=== PATIENT | female | born 1990 | race American Indian/Alaskan Native ===

== ENCOUNTER 2018-12-02 05:48 | Inpatient (IN) | payer MEDICAID, OTHER ==
[2018-12-02] MEDS ORDERED: NARCAN 0.4 MG/1 ML IV PRN (07:06)
[2018-12-02] MEDS ORDERED: XYLOCAINE 2% INFILTRATI ONE (07:06)
[2018-12-02] MEDS ORDERED: STADOL IV PRN (07:06)
[2018-12-02] MEDS ORDERED: SUBLIMAZE IV PRN (07:06)
[2018-12-02] MEDS ORDERED: ZOFRAN IV PRN (07:06)
[2018-12-02] MEDS ORDERED: BRETHINE IVP PRN (07:06)
[2018-12-02] MEDS ORDERED: BRETHINE SUB-Q PRN (07:06)
[2018-12-02] MEDS ORDERED: PITOCin/NS 20 UNIT/1000ML DRIP 20,000 MILLIUNITS/1,000 ML BAG IV ONE (07:11)
[2018-12-02] MEDS ORDERED: LACTATED RINGERS 1,000 ML ONE (07:12)
--- NOTE | 2018-12-02 07:15 | History and Physical Report ---
History of Present Illness Date of examination: 12/02/18 Date of admission: 12/02/18 06:40 Chief complaint: Intense Labor Pains History of present illness: Early entry care, course complicated by a UTI, treated with Macrobid. Past History Past Medical History: other (acne and gastric ulcer) Past Surgical History: hemorrhoidectomy (2008) Family/Genetic History: none Social history: single, smoking (Hx of THC) - Obstetrical History Expected Date of Delivery: 12/15/18 Actual Gestation: 38 Week(s) 1 Day(s) : 4 Para: 2 Hx # Term Pregnancies: 2 Induced : 1 Number of Living Children: 2 #1 Infant Gender: Female year: 2,[birth year] Birthweight: 2.608 kg Method of Delivery: Vaginal Gestational age at delivery: 38 Complications: none #2 Infant Gender: Male year: 2,[birth year] Birthweight: 3.175 kg Method of Delivery: Vaginal Gestational age at delivery: 38 Complications: none Medications and Allergies Allergies Allergy/AdvReac Type Severity Reaction Status Date / Time No Known Allergies Allergy Verified 12/02/18 06:03 Active Meds: Active Medications Butorphanol Tartrate (Stadol) 2 mg IV Q2H PRN PRN Reason: Pain , Severe (7-10) Ephedrine Sulfate (Ephedrine Sulfate) 10 mg IV Q2M PRN PRN Reason: Hypotension Fentanyl (Sublimaze) 100 mcg IV Q2H PRN PRN Reason: Labor Pain Oxytocin/Sodium Chloride (Pitocin/Ns 20 Unit/1000ml Drip) 20 units in 1,000 mls @ 125 mls/hr IV DIRECT INGRID Oxytocin/Sodium Chloride (Pitocin/Ns 30 Unit/500ml) 30 units in 500 mls @ 1 mls/hr IV TITR INGRID; Protocol Oxytocin/Sodium Chloride (Pitocin/Ns 30 Unit/500ml) 30 units in 500 mls @ 2 mls/hr IV TITR INGRID; Protocol Lactated Ringer's (Lactated Ringers) 1,000 mls @ 125 mls/hr IV DIRECT INGRID Lidocaine (Xylocaine 2%) 20 ml INFILTRATI ONCE ONE Stop: 12/02/18 07:07 Mineral Oil (Mineral Oil) 30 ml PO QHS PRN PRN Reason: Constipation Naloxone HCl (Narcan 0.4 Mg/1 Ml) 0.1 mg IV Q2MIN PRN PRN Reason: Res Rate </= 8 or 02 SAT < 92% Ondansetron HCl (Zofran) 4 mg IV Q8H PRN PRN Reason: Nausea And Vomiting Terbutaline Sulfate (Brethine) 0.25 mg SUB-Q ONCE PRN PRN Reason: Hyperstimulation/Hypertonicity Terbutaline Sulfate (Brethine) 0.25 mg IVP ONCE PRN PRN Reason: Hyperstimulation/Hypertonicity Review of Systems All systems: negative - Vital Signs Vital signs: Vital Signs Pulse BP 83 113/75 12/02/18 06:00 12/02/18 06:00 Temp Pulse Resp BP Pulse Ox 83 113/75 12/02/18 06:00 12/02/18 06:00 - Physical Exam Breasts: Positive: normal Cardiovascular: Regular rate Lungs: Positive: Clear to auscultation, Normal air movement Abdomen: Positive: normal appearance, soft, normal bowel sounds Genitourinary (Female): Positive: normal external genitalia, normal perenium Uterus: Positive: enlarged Anus/Rectum: Positive: normal perianal skin Extremities: Positive: normal - Obstetrical FHR: category 1 Uterine Contraction Monitor Mode: External Cervical Dilatation: 8 (AROM of a moderate amount of clear fluid at 0701) Cervical Effacement Percentage: 100 station: 0 Uterine Contraction Pattern: Regular Uterine Tone Measurement Phase: Resting Uterine Contraction Intensity: Moderate Results All other labs normal. Assessment and Plan A: IUP @ 38 05/10 Category I Tracing GBS Negative Active Labor P: Admit to L&D per Routine Orders AROM Anticipate
[2018-12-02 07:33] LABS: Hematocrit 34.7 % (30.3-42.9); Hemoglobin 11.1 gm/dl (10.1-14.3); Mean Corpuscular HGB Conc 32 % (30-34); Mean Corpuscular Volume 84 fl (79-97); Platelet Count 199 K/mm3 (140-440); Red Blood Count 4.11 M/mm3 (3.65-5.03); Red Cell Distribution Width 14.6 % (13.2-15.2)
[2018-12-02] MEDS ORDERED: PITOCin/NS 20 UNIT/1000ML DRIP 20 UNITS/1,000 ML BAG IV SCH (08:00)
[2018-12-02] MEDS ORDERED: LACTATED RINGERS 1,000 ML IV SCH (08:00)
[2018-12-02] MEDS ORDERED: PITOCin/NS 30 UNIT/500ML 30 UNITS/500 ML BAG IV SCH ×2 (08:00)
[2018-12-02] MEDS ORDERED: NARCAN 2 MG/2 ML IV PRN (08:38)
--- NOTE | 2018-12-02 08:38 | Anesthesia Consultation ---
Anesthesia Consult and Med Hx Date of service: 12/02/18 - Airway Anesthetic Teeth Evaluation: Good ROM Head & Neck: Adequate Mental/Hyoid Distance: Adequate Mallampati Class: Class II Intubation Access Assessment: Probably Good - Pulmonary Exam CTA: Yes - Cardiac Exam Cardiac Exam: RRR - Pre-Operative Health Status ASA Pre-Surgery Classification: ASA2 Proposed Anesthetic Plan: Epidural - Pulmonary Hx Asthma: No - Cardiovascular System Hx Hypertension: No - Central Nervous System Hx Seizures: No Hx Psychiatric Problems: No - Endocrine Hx Renal Disease: No Hx Hypothyroidism: No Hx Hyperthyroidism: No - Hematic Hx Anemia: No Hx Sickle Cell Disease: No - Other Systems Hx Alcohol Use: No
[2018-12-02] MEDS ORDERED: fentaNYL-BUPIV 2 MCG/ML-0.125% 200 MCG/100 ML BAG EPIDURAL SCH (09:00)
[2018-12-02] MEDS ORDERED: BENADRYL PO PRN (11:24)
[2018-12-02] MEDS ORDERED: TUCKS PAD TP PRN (11:24)
[2018-12-02] MEDS ORDERED: DULCOLAX PR PRN (11:24)
[2018-12-02] MEDS ORDERED: LANSINOH TP PRN (11:24)
--- NOTE | 2018-12-02 11:32 | Procedure Note ---
OB Delivery Note - Delivery Date of Delivery: 12/02/18 (1105) Surgeon: JANNET WATT Estimated blood loss: 200cc - Vaginal Delivery presentation: vertex Delivery position: OA Intrapartum events: none Delivery induction: none Delivery augmentation: rupture of membranes Delivery monitor: external FHT, external uterine Route of delivery: Delivery placenta: spontaneous Delivery cord: nuchal cord, 3 umbilical vessels Episiotomy: none Delivery laceration: none Anesthesia: epidural Delivery comments: of a live 6'15 female infant over a intact perineum under epidural anesthesia with Apgars of 8 and 9 at 1105 on 12/02/2018. Nuchal cord x 1 manually reduced on the perineum prior to delivery of the anterior shoulder. In jessica directly to maternal abd/chest, skin to skin contact. Spontaneous delivery of placenta complete and intact with Leo side presenting at 1111. Fundus is firm and midline located 4 below the U. Lochia is scant. Delayed cord clamping and cutting; Cord cut by the Father of the Baby. Cord blood collected; Placenta discarded.
[2018-12-02] MEDS ORDERED: SODIUM CHLORIDE FLUSH SYRINGE 10 ML IV SCH (12:00)
[2018-12-02] MEDS ORDERED: IBUPROFEN PO SCH (12:00)
[2018-12-02 14:23] LABS: Hematocrit 33.7 % (30.3-42.9); Hemoglobin 10.7 gm/dl (10.1-14.3)
[2018-12-02] MEDS: NORCO 5/325 PO PRN ×2 (14:30→20:11)
[2018-12-02] MEDS ORDERED: MINERAL OIL PO PRN (22:00)
[2018-12-03] MEDS: NORCO 5/325 PO PRN ×4 (01:49→21:23)
[2018-12-03] MEDS: PRENATAL VITAMIN PO SCH (09:04)
[2018-12-03] MEDS ORDERED: DEPO-PROVERA (CONTRACEPTION) IM ONE (10:31)
--- NOTE | 2018-12-03 10:31 | Progress Note ---
Assessment and Plan A: PPD#1 s/p 12/02 Bottle feeding Pain well controlled Stable P: Routine PP/PO orders Encouraged ambulation in room Anticipate discharge home in 24-48 hrs Subjective - Subjective Date of service: 12/03/18 Principal diagnosis: PPD31 s/p 8 11:27 Interval history: See H&P and delivery note Patient reports: appetite normal, voiding normally, pain well controlled, flatus, ambulating normally, no bowel movement [place]: doing well ( has a 48 hr hold), bottle feeding Objective - Vital Signs Latest vital signs: Vital Signs Temp Pulse Resp BP BP Pulse Ox 12/03/18 09:05 18 12/03/18 08:40 98 F 80 20 105/78 12/03/18 04:23 98.4 F 88 16 99/53 97 12/02/18 23:25 98.7 F 85 18 118/80 98 12/02/18 20:39 99.5 F 94 H 17 125/67 100 12/02/18 15:57 98.8 F 92 H 18 115/66 100 12/02/18 14:30 20 12/02/18 12:47 88 123/71 12/02/18 12:29 113 H 99 12/02/18 12:24 89 100 12/02/18 12:19 104 H 100 12/02/18 12:18 94 H 129/62 12/02/18 12:14 101 H 100 12/02/18 12:09 97 H 100 12/02/18 12:04 106 H 100 12/02/18 11:59 103 H 100 12/02/18 11:54 101 H 100 12/02/18 11:49 109 H 100 12/02/18 11:47 106 H 122/58 12/02/18 11:44 111 H 100 12/02/18 11:39 109 H 100 12/02/18 11:34 103 H 100 12/02/18 11:32 105 H 124/65 12/02/18 11:29 106 H 149/70 100 12/02/18 11:24 106 H 100 12/02/18 11:19 98 H 100 12/02/18 11:14 106 H 100 12/02/18 11:11 97.4 F L 18 12/02/18 11:09 125 H 100 12/02/18 11:08 113 H 127/64 12/02/18 11:04 128 H 100 12/02/18 11:00 115 H 135/63 12/02/18 10:59 120 H 100 12/02/18 10:54 122 H 100 12/02/18 10:49 109 H 100 12/02/18 10:44 121 H 100 12/02/18 10:39 127 H 100 12/02/18 10:34 103 H 100 Intake and Output 12/02/18 12/03/18 12/03/18 23:59 07:59 15:59 Intake Total 480 960 360 Balance 480 960 360 Intake: Oral 480 960 360 Other: Total, Intake Amount 480 960 360 # Voids Void 3 4 1 # Bowel Movements 0 - Exam Breasts: Present: normal Cardiovascular: Present: Regular rate, Normal S1, Normal S2, No murmurs Lungs: Present: Clear to auscultation, Normal air movement Abdomen: Present: normal appearance, soft, normal bowel sounds. Absent: distention Vulva: both: normal Uterus: Present: firm, fundal height at umbilicus Extremities: Present: normal Deep Tendon Reflex Grade: Normal +2
--- NOTE | 2018-12-03 10:33 | Discharge Summary ---
Providers - Providers Date of Admission: 12/02/18 06:40 Date of discharge: 12/04/18 Attending physician: GARRET CONRAD MD Primary care physician: GARRET CONRAD MD Hospitalization Reason for admission: active labor, IUP at term Delivery: Procedure details: See H&P and delivery note Episiotomy: none Laceration: none Other procedures: none complications: none Discharge diagnosis: IUP at term delivered baby: female Condition at discharge: Good Disposition: DC-01 TO HOME OR SELFCARE Plan - Provider Discharge Summary Activity: routine, no sex for 6 weeks, no heavy lifting 4 weeks, no strenuous exercise Diet: routine Instructions: routine Additional instructions: [] Smoking cessation referral if applicable(refer to patient education folder for contact #) [] Refer to [facility]'s [facility] Booklet Call your doctor immediately for: * Fever > 100.5 * Heavy vaginal bleeding ( >1 pad per hour) * Severe persistent headache * Shortness of breath * Reddened, hot, painful area to leg or breast * Drainage or odor from incision. * Keep incision clean and dry at all times and follow doctor's instructions regarding bathing/showering - Follow up plan Follow up: GARRET CONRAD MD [Primary Care Provider] - 6 Weeks
[2018-12-03] MEDS: COLACE PO SCH (21:16)
[2018-12-04] MEDS: NORCO 5/325 PO PRN ×2 (04:11→10:36)
[2018-12-04 10:19] VITALS: BP 111/63
[2018-12-04] MEDS: COLACE PO SCH (10:38)
[2018-12-04] MEDS: PRENATAL VITAMIN PO SCH (10:39)
[2018-12-04] MEDS ORDERED: DEPO-PROVERA (CONTRACEPTION) IM ONE (12:00)
== END 2018-12-04 15:00 | disposition home or self-care (01) | DRG 775 ==
LOC: TRG 05:48 → OBSVTOIN 06:40 → LD 06:40 → TRG 06:40 → OB 13:31
PROVIDERS: ADMIT Obstetrics & Gynecology; ATTEND Obstetrics & Gynecology
PROC: 10E0XZZ Delivery of Products of Conception, External Approach (ICD-10-PCS; principal; 2018-12-02)
PROC: 10907ZC Drainage of Amniotic Fluid, Therapeutic from Products of Conception, Via Natural or Artificial Opening (ICD-10-PCS; 2018-12-02)
PROC: 3E0R3BZ Introduction of Anesthetic Agent into Spinal Canal, Percutaneous Approach (ICD-10-PCS; 2018-12-02)
PROC: 00HU33Z Insertion of Infusion Device into Spinal Canal, Percutaneous Approach (ICD-10-PCS; 2018-12-02)
DX: O69.81X0 Labor and delivery complicated by cord around neck, without compression, not applicable or unspecified (principal); Z37.0 Single live birth; Z87.11 Personal history of peptic ulcer disease; Z3A.38 38 weeks gestation of pregnancy
CPT/HCPCS: 36415; 85014; 85018; 85027; 86592; 86850; 86900; 86901; G0378; J0595; J2590; J7120